=== PATIENT | male | born 1940 | race Caucasian/White ===

== ENCOUNTER 2019-01-19 14:12 | Observation (INO) | payer MEDICARE, SELFPAY ==
[2019-01-19] VITALS (9 sets, daily range): BP systolic 103–168; BP diastolic 74–94; PULSE 81–123; RESP 16–18; TEMP 36.3–36.9; O2SAT 93–98; BMI 25.8; BMI 25.6
--- NOTE | 2019-01-19 14:25 | EKG12_ITS ---
Test Reason : CONFUSION Blood Pressure : / mmHG Vent. Rate : 112 BPM Atrial Rate : 112 BPM P-R Int : 182 ms QRS Dur : 092 ms QT Int : 332 ms P-R-T Axes : 042 -20 034 degrees QTc Int : 453 ms Sinus tachycardia Otherwise normal ECG Confirmed by ELIJAH JAY, BINH ([id number]), science editor SONAL ARRINGTON ([id number]) on 01/20/2019 8:22:32 AM Referred By: DENNY Confirmed By:BINH NAAV MD
--- NOTE | 2019-01-19 14:25 | CT_ITS ---
STUDY: CT BRAIN WITHOUT CONTRAST REASON FOR EXAM: Male, 78 years old. TIA, ALTERED MENTAL STATUS, CONFUSION, HTN, DB RADIATION DOSAGE (If Supplied By Facility): CTDIvol = ( 44.99 ) mGy, DLP = ( 728.62 ) mGycm TECHNIQUE: Transaxial CT imaging of the brain was performed without administration of intravenous contrast material. Individualized dose optimization techniques were used for this CT. COMPARISON: None. FINDINGS: Normal soft tissue structures. Normal calvarium. There is mild cerebral atrophy with widening of the extra-axial spaces and ventricular dilatation. There are areas of decreased attenuation within the white matter tracts of the supratentorial brain, consistent with microvascular disease changes. Normal basal ganglia and thalami. Normal brainstem. Normal cerebellum. There is no intracranial hemorrhage. There are no findings of an acute ischemic infarction. There is mucoperiosteal inflammatory disease of the paranasal sinuses consistent with moderate chronic sinusitis. CT/Brain/Head without Contrast IMPRESSION: Chronic involutional changes of the brain. Electronically Signed: Miguel Childress, at 15:53 EDT Tel , Service support ,
--- NOTE | 2019-01-19 14:29 | ED.DCSUM_ITS ---
History of Present Illness Chief Complaint: Confusion Detail of Chief Complaint: Details unknown since boss left Informant: Patient Limited by: - - Confusion. 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 He called him back 10 minutes later and asked him what he was supposed to do. When he met up with Mr. Vera he states his truck was full of parts. His truck should have been empty. Onset: Today Context: Sudden Onset Timing: Continuous Quality: Patient states he messed up a couple of quarters . Location: Work Current Severity: Mild Maximum Severity: Mild Worsened by: Unknown Relieved by: Apparently nothing Associated Symptoms: Slight headache Narrative: Patient is an elderly man who apparently has history of GERD and asthma. Uncertain whether this is accurate. His boss who brought him here because of his confusion left before the nurse or I could speak to him. Patient acknowledges mild headache, and problems with order. He denies visual, ocular auditory symptoms. He denies cardiac respiratory symptoms. He denies GI or symptoms. He reports no history of trauma. Past Medical History - Allergies and Home Meds Allergies/Adverse Reactions: Allergies Penicillins [PCN] Allergy (Verified 01/19/19 14:33) Unknown Primary Care Physician: [facility] Doctor,Out of [NON-STAFF] - Prior records reviewed: Yes - No prior visits Past Medical History: - - Uncertain Lives: - - Unknown Smoking Status: Former smoker Alcohol: None Review of Systems ROS: Unable to Obtain - Please read HPI. Patient disoriented to time. Is not no age. Is not no birthday. He is an unreliable informant. Neurological: Reports: Headache Physical Exam Vital Signs/Narrative: Vital Signs Temp Pulse Resp BP Pulse Ox 01/19/19 14:13 97.3 F L 122 H 17 136/94 H 97 Inital Vital Signs reviewed: Yes - Patient is tachycardic. He is not tachypneic, hypoxic or febrile. General: Well nourished, Well developed, No Acute Distress Head: Normocephalic, Atraumatic Eyes: Perrl, EOMI. Negative for: Pale conjunctiva, Scleral icterus ENT: Moist mucous membranes, No rhinorrhea, Dry mucous membranes Neck: Supple, Nontender, No lymphadenopathy, No JVD Cardiovascular: Regular rate, Regular rhythm, No murmurs, Tachycardia Respiratory: No distress, CTA bilaterally, Chest nontender Abdomen: Soft, Nontender, Nondistended, Normal bowel sounds, No masses. Negative for: Hepatomegaly, Splenomegaly Back: Nontender, Normal Inspection Extremities: Nontender, No edema Skin: Normal color, No rash, No Trauma. Negative for: Cyanosis, Jaundice, Pallor Neurological: Alert, Cranial nerves II-XII grossly intact, Normal Strength, Normal Sensation, Normal DTR, - - Finger-nose to finger was performed adequately. Negative for: Oriented x3 Psychological: Normal affect Diagnostic/Tx/Re-eval 01/19/19 14:25 Brain/Head without Contrast [CT] Stat Laboratory Results 01/19/19 01/19/19 01/19/19 14:30 14:30 14:36 WBC 10.4 RBC 4.87 Hgb 15.6 Hct 45.8 MCV 94.0 MCH 32.0 MCHC 34.1 RDW 13.2 RDW Differential 45.5 H Plt Count 198 MPV 10.1 Immature Gran % (Auto) 0.200 Neut % (Auto) 83.7 H Lymph % (Auto) 8.8 L [place] % (Auto) 6.1 Eos % (Auto) 0.6 Baso % (Auto) 0.6 Absolute Neuts (auto) 8.7 H Absolute Lymphs (auto) 0.91 Total Counted Not Reportable Sodium 138 Potassium 3.6 Chloride 106 Carbon Dioxide 26.0 Anion Gap 6 BUN 12 Creatinine 0.89 Estim Creat Clear Calc 66.18 Est GFR (MDRD) Af Amer 107 Est GFR (MDRD) Non-Af 88 BUN/Creatinine Ratio 13.5 Glucose 165 H Calcium 8.7 Urine Color Urine Clarity Urine pH Ur Specific [place] Urine Protein Urine Glucose (UA) Urine Ketones Urine Occult Blood Urine Nitrite Urine Bilirubin Urine Urobilinogen Ur Leukocyte Esterase Urine RBC Urine WBC Ur Squamous Epith Cells Urine Bacteria Urine Mucus POC Glucose 163 H 01/19/19 15:00 WBC RBC Hgb Hct MCV MCH MCHC RDW RDW Differential Plt Count MPV Immature Gran % (Auto) Neut % (Auto) Lymph % (Auto) [place] % (Auto) Eos % (Auto) Baso % (Auto) Absolute Neuts (auto) Absolute Lymphs (auto) Total Counted Sodium Potassium Chloride Carbon Dioxide Anion Gap BUN Creatinine Estim Creat Clear Calc Est GFR (MDRD) Af Amer Est GFR (MDRD) Non-Af BUN/Creatinine Ratio Glucose Calcium Urine Color Yellow Urine Clarity Sl Cloudy Urine pH 6.0 Ur Specific [place] 1.015 Urine Protein 15 H Urine Glucose (UA) Normal Urine Ketones 50 H Urine Occult Blood 25 H Urine Nitrite Negative Urine Bilirubin Negative Urine Urobilinogen Normal Ur Leukocyte Esterase 25 H Urine RBC 0-5 SEEN Urine WBC 0-5 SEEN Ur Squamous Epith Cells 0 SEEN Urine Bacteria RARE Urine Mucus [address] has not been read by radiologist. There is no evidence of sinusitis. There is no evidence of intracranial bleed i.e. subdural, subarachnoid hemorrhage, epidural or intraparenchymal blood. There is no obvious stroke per my review. Case was discussed with hospitalist. He requested hepatic panel and ammonia level. - Rhythm Strip Rhythm Strip: Sinus Rhythm Rate: 124 Ectopy: None - EKG Initial EKG Interpretation: Sinus Tachycardia - Ventricular rate is 112. MS interval is 182 ms. QRS duration is 92 ms. QT interval is normal. [place] is normal. Other than tachycardia EKG is normal. - Medical Decision Making Patient with acute onset of confusion. Since he complains of headache will obtain CT to evaluate for intracranial bleed. Since he has a nonfocal exam doubt stroke. Need to rule out infectious/metabolic cause. Patient had a list of medications and based on his list of medications he has a history of hypertension, hypercholesterolemia and type 2 diabetes on metformin. PTT was ordered. Electronic panel, CBC are unremarkable. UA is unremarkable. CT has not formally been read but there is no obvious abnormality per my review. Plan is PCU observation status for further testing. Hospitalist requested hepatic panel and ammonia level. Per patient's employer/boss there is no history of alcohol or drug use. ED Disposition - Plan for ED Patient: Disposition: Acute Care Hospital [facility] Diagnosis: Acute confusion, History of type 2 diabetes mellitus, History of hypertension, History of hypercholesterolemia Referrals: [facility] Doctor,Out of [NON-STAFF] -
[2019-01-19 14:38] LABS: Absolute Lymphocyte Count 0.91 X10^3/ul (0.83-4.51); Absolute Neutrophil Count 8.7 X10^3/uL (2.0-7.7); Basophil# 0.06 X10^3/uL; Basophil% 0.6 % (0-1); Eosinophil# 0.06 X10^3/uL; Eosinophils% 0.6 % (0-5); Hematocrit 45.8 % (40-54); Hemoglobin 15.6 g/dl (13.0-16.5); Lymphocyte # 0.91 X10^3/ul (4.0); Lymphocyte % 8.8 % (19-41); Mean Corp Hgb Conc 34.1 g/gl (32-36); Mean Platelet Vol. 10.1 fl (6.2-12.0); Monocyte# 0.63 X10^3/uL; Monocyte% 6.1 % (0-10); Neutrophil # 8.72 X10^3/uL (2.7-7.7); Neutrophil % 83.7 % (47-70); POSITIVE COUNT NO; POSITIVE DIFFERENTIAL NO; POSITIVE MORPHOLOGY NO; Platelet Count 198 K/mm3 (150-450); RBC Distribution Width CV 13.2 % (11.6-14.6); RBC Distribution Width SD 45.5 fl (35.1-43.9); Red Blood Count 4.87 M/mm3 (4.6-6.2); White Blood Count 10.4 K/mm3 (4.4-11.0)
[2019-01-19 14:41] LABS: Bedside Glucose 163 mg/dL (70-110)
[2019-01-19 14:56] LABS: Anion Gap 6 (5-15); BUN 12 mg/dL (7-18); BUN/Creat Ratio 13.5 RATIO (10-20); Calcium,Total 8.7 mg/dL (8.5-10.1); Chloride 106 mmol/L (98-107); Creatinine, Serum 0.89 mg/dL (0.70-1.30); EST Glomerular Filtration Rate 88 mL/min (>60); Est Glom Filt Rate - Afr Amer 107 mL/min (>60); Estimated Creatinine Clearance 66.18 ml/min; Glucose 165 mg/dL (74-106); Potassium 3.6 mmol/L (3.5-5.1); Sodium Level 138 mmol/L (136-145)
[2019-01-19 15:02] LABS: Mucous, Urine 0 SEEN /hpf (<or=2+); Squamous Epithelial Cells - UA 0 SEEN /hpf (0-5)
[2019-01-19 15:06] LABS: Glucose, Dipstick Normal (Normal); Ketone-Dipstick 50 mg/dl (Negative); Leukocyte Esterase-Dipstick 25 /ul (Negative); Nitrite-Dipstick Negative (Negative); Occult Blood-Urine 25 /ul (Negative); Protein-Dipstick 15 mg/dl (Negative); Specific Gravity, Urine 1.015 (1.002-1.030); Urine Bilirubin Dipstick Negative (Negative); Urine Urobilinogen Normal (Normal)
[2019-01-19 15:07] LABS: Color, Urine Yellow (Yellow); Urine Clarity Sl Cloudy (Clear)
[2019-01-19 15:17] LABS: Bacteria RARE /hpf (None Seen); Red Blood Cells-Urine 0-5 SEEN /hpf (0-5); White Blood Cells 0-5 SEEN /hpf (0-5)
[2019-01-19 15:42] LABS: AST(SGOT) 28 U/L (15-37); Alanine Aminotransfer ALT/SGPT 48 U/L (16-61); Albumin, Serum 4.7 g/dL (3.2-5.0); Alkaline Phosphatase 81 U/L (45-117); Globulin 3.7 g/dL (2.2-4.2); Protein, Total 8.4 g/dL (6.4-8.2)
[2019-01-19] MEDS: 0.9% Normal Saline 1,000 ML 100 ML IV (16:30)
--- NOTE | 2019-01-19 16:36 | HP.PCM_ITS ---
<Mer Orourke - Last Filed: 01/19/19 16:56> Problem List (1) Acute confusion Status: Acute (2) History of type 2 diabetes mellitus Status: Chronic (3) History of hypertension Status: Chronic (4) History of hypercholesterolemia Status: Chronic History of Present Illness Date of Admission: 01/19/19 Chief Complaint: Altered mental status. The patient is a 78 year old M who presents the emergency room due to altered mental status. Patient was reported to be confused at work and coworker brought him to the emergency room for further evaluation. Coworker at bedside states patient was not completing daily tasks as he usually does. Patient was reported to seem disoriented and confused. Coworker denies that patient had speech changes, facial droop. Patient denies knowledge of being confused today. He does not remember his coworker bring him to the hospital. He does note he had a headache earlier today which has since resolved. Coworker reports he has not known patient to be confused in the past. Patient denies current symptoms. Denies recent illness. Neuro assessment grossly intact with the exception of orientation questions. Patient states the year is 2000, month December and that he is at [facility]. He has a past medical history of hypertension, hyperlipidemia, type 2 diabetes mellitus, BPH and GERD. Past Medical History Past Medical History (Chronic Problems): Chronic Problems History of type 2 diabetes mellitus (Chronic) History of hypertension (Chronic) History of hypercholesterolemia (Chronic) Allergies Penicillins [PCN] Allergy (Verified 01/19/19 14:33) Unknown Home Medications: Ambulatory Orders Medication Instructions Recorded Amlodipine [Norvasc] 10 mg PO DAILY 01/19/19 Aspirin E.C. [Ecotrin] 162.5 mg PO DAILY 01/19/19 Finasteride [Proscar] 5 mg PO DAILY 01/19/19 Metformin HCl 500 mg PO DAILY 01/19/19 Multivit-Min/FA/Lycopen/Lutein 1 tab PO DAILY 01/19/19 [Centrum Silver Men Tablet] Omeprazole [Prilosec] 20 mg PO DAILY 01/19/19 Oxybutynin [Ditropan] 5 mg PO DAILY 01/19/19 Pravastatin [Pravachol] 40 mg PO DAILY 01/19/19 Surgical History: appendectomy, cholecystectomy, tonsillectomy Psychiatric History: No pertinent psych hx Lives: Alone Smoking Status: Never smoker Alcohol: None Drugs: None - *Family History Maternal History Items: - - Parkinson's disease Paternal History Items: - - Parkinson's disease Review of Systems Constitutional: Denies: Chills, Fever, Weight Change HEENT: Reports: - - Headache, resolved.. Denies: Head Aches, Sinus Congestion, Sinus Drainage Cardiovascular: Denies: Chest Pain, Palpitations Respiratory: Denies: Cough, Shortness of breath at rest, Sputum production Gastrointestinal: Denies: Abdominal Pain, Nausea, Vomiting Genitourinary: Denies: Dysuria Musculoskeletal: Denies: Joint Pain, Joint Tenderness Skin: Denies: Rash, Wounds Neurological: Denies: Numbness, Tingling, Focal weakness Psychiatric: Denies: Anxiety, Depression, Homicidal Ideations, Suicidal Ideations Hematologic/ Lymphatic: Denies: Easy Bruising, Easy Bleeding VTE Information - Inpt Only VTE Present on Admission: No VTE Mechan Device Prophylaxis: None VTE Pharm Prophylaxis ordered?: Yes Patient Problems: Active and Suspected Problems Acute confusion (Acute) - Physical Exam General: Alert, Cooperative, Confused HEENT: Atraumatic, PERRLA, EOMI, Normocephalic Neck: Supple, No JVD, Negative Carotid Bruits Lungs: Clear to auscultation, Normal air movement Cardiovascular: Regular rate, Regular Rhythm, Normal S1, Normal S2, No murmurs Abdomen: Bowel Sounds Present, Soft, Non Tender, Non-Distended Extremities: No clubbing, No cyanosis, No edema, Capillary Refill Less than 3 Seconds Skin: No rashes, No breakdown Musculoskeletal: No Tenderness to Palpation of Joints or Extremities Neurological: Cranial nerves II-XII grossly intact, Neuro grossly intact Psych/Mental Status: Normal Affect, Appropriate Vital Signs Temp Pulse Resp BP Pulse Ox 98.5 F 107 H 18 147/83 H 97 01/19/19 16:12 01/19/19 16:12 01/19/19 16:12 01/19/19 16:12 01/19/19 16:12 Oxygen Delivery Method Room Air Weight: 168 lb 6.931 oz Body Mass Index (BMI) 25.6 Finger Stick Blood Glucose 163 Laboratory Tests Past 24 Hrs 01/19/19 01/19/19 01/19/19 14:30 14:30 14:30 WBC 10.4 RBC 4.87 Hgb 15.6 Hct 45.8 MCV 94.0 MCH 32.0 MCHC 34.1 RDW 13.2 RDW Differential 45.5 H Plt Count 198 MPV 10.1 Immature Gran % (Auto) 0.200 Neut % (Auto) 83.7 H Lymph % (Auto) 8.8 L [place] % (Auto) 6.1 Eos % (Auto) 0.6 Baso % (Auto) 0.6 Absolute Neuts (auto) 8.7 H Absolute Lymphs (auto) 0.91 Total Counted Not Reportable Sodium 138 Potassium 3.6 Chloride 106 Carbon Dioxide 26.0 Anion Gap 6 BUN 12 Creatinine 0.89 Estim Creat Clear Calc 66.18 Est GFR (MDRD) Af Amer 107 Est GFR (MDRD) Non-Af 88 BUN/Creatinine Ratio 13.5 Glucose 165 H Calcium 8.7 Total Bilirubin 0.60 Direct Bilirubin 0.20 AST 28 ALT 48 Alkaline Phosphatase 81 Ammonia Total Protein 8.4 H Albumin 4.7 Globulin 3.7 Urine Color Urine Clarity Urine pH Ur Specific [place] Urine Protein Urine Glucose (UA) Urine Ketones Urine Occult Blood Urine Nitrite Urine Bilirubin Urine Urobilinogen Ur Leukocyte Esterase Urine RBC Urine WBC Ur Squamous Epith Cells Urine Bacteria Urine Mucus 01/19/19 01/19/19 15:00 15:23 WBC RBC Hgb Hct MCV MCH MCHC RDW RDW Differential Plt Count MPV Immature Gran % (Auto) Neut % (Auto) Lymph % (Auto) [place] % (Auto) Eos % (Auto) Baso % (Auto) Absolute Neuts (auto) Absolute Lymphs (auto) Total Counted Sodium Potassium Chloride Carbon Dioxide Anion Gap BUN Creatinine Estim Creat Clear Calc Est GFR (MDRD) Af Amer Est GFR (MDRD) Non-Af BUN/Creatinine Ratio Glucose Calcium Total Bilirubin Direct Bilirubin AST ALT Alkaline Phosphatase Ammonia 11.0 Total Protein Albumin Globulin Urine Color Yellow Urine Clarity Sl Cloudy Urine pH 6.0 Ur Specific [place] 1.015 Urine Protein 15 H Urine Glucose (UA) Normal Urine Ketones 50 H Urine Occult Blood 25 H Urine Nitrite Negative Urine Bilirubin Negative Urine Urobilinogen Normal Ur Leukocyte Esterase 25 H Urine RBC 0-5 SEEN Urine WBC 0-5 SEEN Ur Squamous Epith Cells 0 SEEN Urine Bacteria RARE Urine Mucus 0 SEEN POC Glucose 01/19/19 14:36 POC Glucose 163 H Assessment/Plan All Active Problems Acute confusion (Acute) 1. Altered mental status-unclear etiology. Brain CT shows chronic changes. No acute findings. Urinalysis unremarkable. Obtain chest x-ray. Obtain MRI of brain. [facility]. Fall precautions. PT/OT. 2. Hypertension-stable, continue home amlodipine regimen. 3. Hyperlipidemia-continue statin. 4. Type 2 diabetes mellitus-hold metformin regimen. Accu-Cheks AC at bedtime with sliding scale insulin. 5. GERD-continue PPI. 6. BPH-continue home Proscar regimen. DVT prophylaxis-Lovenox subcu This patient was seen by SAMIR Baez under the supervision of Dr. Payne. <Kevin Payne F - Last Filed: 01/19/19 18:39> History of Present Illness The patient is a 78 year old M [] Past Medical History Allergies Penicillins [PCN] Allergy (Verified 01/19/19 14:33) Unknown - Physical Exam Vital Signs Temp Pulse Resp BP Pulse Ox 98.5 F 106 H 18 147/83 H 97 01/19/19 16:12 01/19/19 16:58 01/19/19 16:12 01/19/19 16:12 01/19/19 16:12 Oxygen Delivery Method Room Air Weight: 168 lb 6.931 oz Body Mass Index (BMI) 25.6 Finger Stick Blood Glucose 163 Intake and Output for Last 24 Hours 01/17/19 01/18/19 01/19/19 23:59 23:59 23:59 Intake Total 438 / 438 Balance 438 / 438 Laboratory Tests Past 24 Hrs 01/19/19 01/19/19 01/19/19 14:30 14:30 14:30 WBC 10.4 RBC 4.87 Hgb 15.6 Hct 45.8 MCV 94.0 MCH 32.0 MCHC 34.1 RDW 13.2 RDW Differential 45.5 H Plt Count 198 MPV 10.1 Immature Gran % (Auto) 0.200 Neut % (Auto) 83.7 H Lymph % (Auto) 8.8 L [place] % (Auto) 6.1 Eos % (Auto) 0.6 Baso % (Auto) 0.6 Absolute Neuts (auto) 8.7 H Absolute Lymphs (auto) 0.91 Total Counted Not Reportable Sodium 138 Potassium 3.6 Chloride 106 Carbon Dioxide 26.0 Anion Gap 6 BUN 12 Creatinine 0.89 Estim Creat Clear Calc 66.18 Est GFR (MDRD) Af Amer 107 Est GFR (MDRD) Non-Af 88 BUN/Creatinine Ratio 13.5 Glucose 165 H Hemoglobin A1c Calcium 8.7 Total Bilirubin 0.60 Direct Bilirubin 0.20 AST 28 ALT 48 Alkaline Phosphatase 81 Ammonia Total Protein 8.4 H Albumin 4.7 Globulin 3.7 Urine Color Urine Clarity Urine pH Ur Specific [place] Urine Protein Urine Glucose (UA) Urine Ketones Urine Occult Blood Urine Nitrite Urine Bilirubin Urine Urobilinogen Ur Leukocyte Esterase Urine RBC Urine WBC Ur Squamous Epith Cells Urine Bacteria Urine Mucus 01/19/19 01/19/19 01/19/19 14:30 15:00 15:23 WBC RBC Hgb Hct MCV MCH MCHC RDW RDW Differential Plt Count MPV Immature Gran % (Auto) Neut % (Auto) Lymph % (Auto) [place] % (Auto) Eos % (Auto) Baso % (Auto) Absolute Neuts (auto) Absolute Lymphs (auto) Total Counted Sodium Potassium Chloride Carbon Dioxide Anion Gap BUN Creatinine Estim Creat Clear Calc Est GFR (MDRD) Af Amer Est GFR (MDRD) Non-Af BUN/Creatinine Ratio Glucose Hemoglobin A1c 6.7 H Calcium Total Bilirubin Direct Bilirubin AST ALT Alkaline Phosphatase Ammonia 11.0 Total Protein Albumin Globulin Urine Color Yellow Urine Clarity Sl Cloudy Urine pH 6.0 Ur Specific [place] 1.015 Urine Protein 15 H Urine Glucose (UA) Normal Urine Ketones 50 H Urine Occult Blood 25 H Urine Nitrite Negative Urine Bilirubin Negative Urine Urobilinogen Normal Ur Leukocyte Esterase 25 H Urine RBC 0-5 SEEN Urine WBC 0-5 SEEN Ur Squamous Epith Cells 0 SEEN Urine Bacteria RARE Urine Mucus 0 SEEN POC Glucose 01/19/19 01/19/19 16:30 14:36 POC Glucose 150 H 163 H Code Visit Addendum: Dr. Payne I personally examined the patient and reviewed the chart. I agree with the above. 78-year-old male who is found to be confused this morning. 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 So his boss went down to the truck and noticed that he had not made any of his deliveries today which was highly abnormal for him. In the ER he did not know his age and the month however the rest of his NIH was normal and he had no focal deficits. Because there is no timing of when this occurred TPA was not a consideration and it is felt that he is having a stroke. On my evaluation he was able to get the month but did not know the year or his age. He had normal strength and sensation in all 4 extremities cranial nerves were intact and he had no lateralizing or focal findings. LFTs were added on to his ER labs as well as an ammonia which were both normal. Will obtain a TSH and a B12 in the morning and continue with neuro checks overnight. MRI in the morning as well. OBSV E&M: [id number] Initial observation care L3
[2019-01-19 16:51] LABS: Bedside Glucose 150 mg/dL (70-110)
--- NOTE | 2019-01-19 17:15 | RAD_ITS ---
STUDY: X-RAY CHEST REASON FOR EXAM: Male, 78 years old. Altered mental status TECHNIQUE: Single AP portable view of the chest. COMPARISON: None. FINDINGS: EKG leads overlie the chest There are interstitial fibrotic changes of the lungs. There is no demonstrated pleural abnormality. Normal size heart. Normal mediastinum and tavares. Normal visualized pulmonary arteries. There is atherosclerotic calcification of the aortic arch with tortuosity. Normal visualized thoracic spine. Normal visualized ribs, clavicles, and shoulders. There is no demonstrated abnormality of the visualized soft tissue structures of the upper abdomen. RAD/Chest 1 View (Portable) IMPRESSION: No acute pulmonary process Electronically Signed: Milan Cannon MD at 17:28 EDT , Service support ,
[2019-01-19 17:36] LABS: Hemoglobin A1c 6.7 % (4.2-6.3)
[2019-01-19] MEDS: Insulin Lispro 100 UNIT/ML INSULN.PEN SQ (17:50)
[2019-01-19] MEDS: 0.9% NaCl Peripheral Flush Adult/Peds IV (17:50)
[2019-01-19] MEDS: Pravastatin 40 MG Tablet PO (22:20)
[2019-01-19 22:30] LABS: Bedside Glucose 104 mg/dL (70-110)
[2019-01-20] VITALS (8 sets, daily range): BP systolic 121–141; BP diastolic 68–85; PULSE 72–92; RESP 16–18; TEMP 36.5–36.6; O2SAT 96–97
[2019-01-20] MEDS: 0.9% Normal Saline 1,000 ML 100 ML IV (02:30)
--- NOTE | 2019-01-20 05:55 | MRI_ITS ---
STUDY: MRI BRAIN WITHOUT CONTRAST REASON FOR EXAM: Male, 78 years old. Confusion and left facial numbness TECHNIQUE: Standardized multiplanar fat and water weighted pulse sequences were obtained. COMPARISON: CT head 01/19/2019 FINDINGS: There is mild cerebral atrophy with widening of the extra-axial spaces and ventricular dilatation. There are multiple white matter hyperintensities, distributed throughout the deep white matter tracts of the cerebral hemispheres, consistent with moderate chronic white matter ischemic changes. Normal bilateral basal ganglia. Normal thalami. There is no extra-axial fluid accumulation. Normal flow voids within the major intracranial circulation suggesting patency by spin echo criteria. Normal sella turcica, pituitary gland, infundibular stalk, optic chiasm and hypothalamus. Normal tectal plate and pineal gland. Normal midbrain, afshin and medulla. Normal cerebellum. Normal basal cisterns. Normal bilateral temporal bones. Normal bilateral internal auditory canals. No demonstrated orbital abnormality, within the constraints of a routine brain study. Normal visualized paranasal sinuses. Normal calvarium and skull base. Normal visualized soft tissue structures. Normal visualized upper cervical spine. MRI/Brain without Contrast IMPRESSION: No acute intracranial abnormality. Involutional changes of the brain, as described above. Electronically Signed: Avelina Doyle, at 9:19 EDT Tel , Service support ,
[2019-01-20 05:59] LABS: Absolute Lymphocyte Count 1.68 X10^3/ul (0.83-4.51); Basophil# 0.04 X10^3/uL; Basophil% 0.6 % (0-1); Eosinophil# 0.45 X10^3/uL; Eosinophils% 6.3 % (0-5); Hematocrit 42.4 % (40-54); Hemoglobin 14.3 g/dl (13.0-16.5); Lymphocyte # 1.68 X10^3/ul (4.0); Lymphocyte % 23.4 % (19-41); Mean Corp Hgb Conc 33.7 g/gl (32-36); Mean Corpuscular Hgb 32.3 pg (27.0-32.0); Mean Corpuscular Volume 95.7 fL (80-94); Mean Platelet Vol. 10.5 fl (6.2-12.0); Monocyte# 0.98 X10^3/uL; Monocyte% 13.6 % (0-10); Neutrophil # 4.03 X10^3/uL (2.7-7.7); Neutrophil % 56.1 % (47-70); Platelet Count 199 K/mm3 (150-450); RBC Distribution Width CV 13.4 % (11.6-14.6); Red Blood Count 4.43 M/mm3 (4.6-6.2); White Blood Count 7.2 K/mm3 (4.4-11.0)
[2019-01-20 06:19] LABS: POSITIVE COUNT NO; POSITIVE DIFFERENTIAL NO; POSITIVE MORPHOLOGY NO
[2019-01-20 06:45] LABS: Anion Gap 7 (5-15); BUN 8 mg/dL (7-18); BUN/Creat Ratio 10.8 RATIO (10-20); Calcium,Total 8.2 mg/dL (8.5-10.1); Chloride 110 mmol/L (98-107); Creatinine, Serum 0.74 mg/dL (0.70-1.30); EST Glomerular Filtration Rate 108 mL/min (>60); Est Glom Filt Rate - Afr Amer 131 mL/min (>60); Glucose 122 mg/dL (74-106); Potassium 3.7 mmol/L (3.5-5.1); Sodium Level 144 mmol/L (136-145); Thyroid Stim Hormone (TSH) 3.16 uIU/mL (0.358-3.74)
[2019-01-20 06:50] LABS: Bedside Glucose 126 mg/dL (70-110)
[2019-01-20] MEDS: Enoxaparin 40 MG/0.4 ML Syringe SC (09:43)
[2019-01-20] MEDS: Oxybutynin 5 MG Tablet PO (09:43)
[2019-01-20] MEDS: amLODIPine 10 MG Tablet PO (09:43)
[2019-01-20] MEDS: Aspirin 325 MG Tablet 162.5 MG PO (09:43)
[2019-01-20] MEDS: Finasteride 5 MG Tablet PO (09:44)
[2019-01-20] MEDS: Pantoprazole Sodium 20 MG Tablet PO (09:44)
--- NOTE | 2019-01-20 10:46 | CON.PCM_ITS ---
Reason for Consult Date of Consultation: 01/20/19 Reason for Consultation: confusion History of Present Illness: The patient is a 78 year old M right handed presented with confusion as described below, now feels normal. doesnt know of a trigger. 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 he reports he drove the van to work, apparently drove ok but was noted abnormal by suprevisor. no med changes or recent illness. reports recent sinus infection but only used humidifier. no gi or gu complaints. no insomnia. per admit note:The patient is a 78 year old M who presents the emergency room due to altered mental status. Patient was reported to be confused at work and coworker brought him to the emergency room for further evaluation. Coworker at bedside states patient was not completing daily tasks as he usually does. Patient was reported to seem disoriented and confused. Coworker denies that patient had speech changes, facial droop. Patient denies knowledge of being confused today. He does not remember his coworker bring him to the hospital. He does note he had a headache earlier today which has since resolved. Coworker reports he has not known patient to be confused in the past. Patient denies current symptoms. Denies recent illness. Neuro assessment grossly intact with the exception of orientation questions. Patient states the year is 2000, month December and that he is at [facility]. He has a past medical history of hypertension, hyperlipidemia, type 2 diabetes mellitus, BPH and GERD. Past Medical History Past Medical History (Chronic Problems): Chronic Problems History of type 2 diabetes mellitus (Chronic) History of hypertension (Chronic) History of hypercholesterolemia (Chronic) Allergies Penicillins [PCN] Allergy (Verified 01/19/19 14:33) Unknown Home Medications: Ambulatory Orders Medication Instructions Recorded Amlodipine [Norvasc] 10 mg PO DAILY 01/19/19 Aspirin E.C. [Ecotrin] 162.5 mg PO DAILY 01/19/19 Finasteride [Proscar] 5 mg PO DAILY 01/19/19 Metformin HCl 500 mg PO DAILY 01/19/19 Multivit-Min/FA/Lycopen/Lutein 1 tab PO DAILY 01/19/19 [Centrum Silver Men Tablet] Omeprazole [Prilosec] 20 mg PO DAILY 01/19/19 Oxybutynin [Ditropan] 5 mg PO DAILY 01/19/19 Pravastatin [Pravachol] 40 mg PO DAILY 01/19/19 Surgical History: appendectomy, cholecystectomy, tonsillectomy Psychiatric History: No pertinent psych hx Lives: Alone Smoking Status: Never smoker Tobacco Use: Non-smoker Alcohol: None Drugs: None - *Family History Maternal History Items: - - Parkinson's disease Paternal History Items: - - Parkinson's disease Review of Systems Constitutional: Denies: Chills, Fever, Weight Change HEENT: Denies: Head Aches, Sinus Congestion, Sinus Drainage Cardiovascular: Denies: Chest Pain, Palpitations Respiratory: Denies: Cough, Shortness of breath at rest, Sputum production Gastrointestinal: Denies: Abdominal Pain, Nausea, Vomiting Genitourinary: Denies: Dysuria Musculoskeletal: Denies: Joint Pain, Joint Tenderness Skin: Denies: Rash, Wounds Neurological: Reports: Confusion. Denies: Focal weakness, Numbness, Tingling Psychiatric: Denies: Anxiety, Depression, Homicidal Ideations, Suicidal Ideations Hematologic/ Lymphatic: Denies: Easy Bruising, Easy Bleeding Patient Problems: Active and Suspected Problems Acute confusion (Acute) - Physical Exam General: Alert, Oriented x3, Cooperative, No apparent distress HEENT: PERRLA, EOMI Neurological: Cranial nerves II-XII grossly intact, Deep Tendon Reflexes 2+/4 and Symmetrical, Neuro grossly intact, Motor Exam 5/5 strength throughout, Se nsory exam intact to light touch and pain, Coordination normal Psych/Mental Status: Normal Affect, Alert and oriented to time, place, person, mood and affect Vital Signs Temp Pulse Resp BP Pulse Ox 36.6 C 92 16 130/85 H 97 01/20/19 08:10 01/20/19 08:10 01/20/19 08:10 01/20/19 08:10 01/20/19 08:10 Oxygen Delivery Method Room Air Weight: 76.4 kg Body Mass Index (BMI) 25.6 Finger Stick Blood Glucose 163 Intake and Output for Last 24 Hours 01/18/19 01/19/19 01/20/19 23:59 23:59 23:59 Intake Total 1008 / 1008 939 / 939 Output Total 450 / 450 625 / 625 Balance 558 / 558 314 / 314 Laboratory Tests Past 24 Hrs 01/19/19 01/19/19 01/19/19 14:30 14:30 14:30 WBC 10.4 RBC 4.87 Hgb 15.6 Hct 45.8 MCV 94.0 MCH 32.0 MCHC 34.1 RDW 13.2 RDW Differential 45.5 H Plt Count 198 MPV 10.1 Immature Gran % (Auto) 0.200 Neut % (Auto) 83.7 H Lymph % (Auto) 8.8 L [place] % (Auto) 6.1 Eos % (Auto) 0.6 Baso % (Auto) 0.6 Absolute Neuts (auto) 8.7 H Absolute Lymphs (auto) 0.91 Total Counted Not Reportable Sodium 138 Potassium 3.6 Chloride 106 Carbon Dioxide 26.0 Anion Gap 6 BUN 12 Creatinine 0.89 Estim Creat Clear Calc 66.18 Est GFR (MDRD) Af Amer 107 Est GFR (MDRD) Non-Af 88 BUN/Creatinine Ratio 13.5 Glucose 165 H Hemoglobin A1c Calcium 8.7 Total Bilirubin 0.60 Direct Bilirubin 0.20 AST 28 ALT 48 Alkaline Phosphatase 81 Ammonia Total Protein 8.4 H Albumin 4.7 Globulin 3.7 Vitamin B12 TSH Urine Color Urine Clarity Urine pH Ur Specific [place] Urine Protein Urine Glucose (UA) Urine Ketones Urine Occult Blood Urine Nitrite Urine Bilirubin Urine Urobilinogen Ur Leukocyte Esterase Urine RBC Urine WBC Ur Squamous Epith Cells Urine Bacteria Urine Mucus 01/19/19 01/19/19 01/19/19 14:30 15:00 15:23 WBC RBC Hgb Hct MCV MCH MCHC RDW RDW Differential Plt Count MPV Immature Gran % (Auto) Neut % (Auto) Lymph % (Auto) [place] % (Auto) Eos % (Auto) Baso % (Auto) Absolute Neuts (auto) Absolute Lymphs (auto) Total Counted Sodium Potassium Chloride Carbon Dioxide Anion Gap BUN Creatinine Estim Creat Clear Calc Est GFR (MDRD) Af Amer Est GFR (MDRD) Non-Af BUN/Creatinine Ratio Glucose Hemoglobin A1c 6.7 H Calcium Total Bilirubin Direct Bilirubin AST ALT Alkaline Phosphatase Ammonia 11.0 Total Protein Albumin Globulin Vitamin B12 TSH Urine Color Yellow Urine Clarity Sl Cloudy Urine pH 6.0 Ur Specific [place] 1.015 Urine Protein 15 H Urine Glucose (UA) Normal Urine Ketones 50 H Urine Occult Blood 25 H Urine Nitrite Negative Urine Bilirubin Negative Urine Urobilinogen Normal Ur Leukocyte Esterase 25 H Urine RBC 0-5 SEEN Urine WBC 0-5 SEEN Ur Squamous Epith Cells 0 SEEN Urine Bacteria RARE Urine Mucus 0 SEEN 01/20/19 01/20/19 01/20/19 05:15 05:15 05:15 WBC 7.2 RBC 4.43 L Hgb 14.3 Hct 42.4 MCV 95.7 H MCH 32.3 H MCHC 33.7 RDW 13.4 RDW Differential 45.0 H Plt Count 199 MPV 10.5 Immature Gran % (Auto) 0.000 Neut % (Auto) 56.1 Lymph % (Auto) 23.4 [place] % (Auto) 13.6 H Eos % (Auto) 6.3 H Baso % (Auto) 0.6 Absolute Neuts (auto) 4.0 Absolute Lymphs (auto) 1.68 Total Counted Not Reportable Sodium 144 Potassium 3.7 Chloride 110 H Carbon Dioxide 27.0 Anion Gap 7 BUN 8 Creatinine 0.74 Estim Creat Clear Calc 58.90 Est GFR (MDRD) Af Amer 131 Est GFR (MDRD) Non-Af 108 BUN/Creatinine Ratio 10.8 Glucose 122 H Hemoglobin A1c Calcium 8.2 L Total Bilirubin Direct Bilirubin AST ALT Alkaline Phosphatase Ammonia Total Protein Albumin Globulin Vitamin B12 Pending TSH 3.16 Urine Color Urine Clarity Urine pH Ur Specific [place] Urine Protein Urine Glucose (UA) Urine Ketones Urine Occult Blood Urine Nitrite Urine Bilirubin Urine Urobilinogen Ur Leukocyte Esterase Urine RBC Urine WBC Ur Squamous Epith Cells Urine Bacteria Urine Mucus POC Glucose 01/20/19 01/19/19 01/19/19 06:42 22:18 16:30 POC Glucose 126 H 104 150 H 01/19/19 14:36 POC Glucose 163 H MRI reviewed, no acute. Atrophy. Assessment/Plan All Active Problems Acute confusion (Acute) encephalopathy, resolved TGA (atypical) vs uti (resolved). now normal, tests negative. check C.O. ok to dc
[2019-01-20 10:54] LABS: Vitamin B12 658 pg/mL (211-911)
[2019-01-20] MEDS: Insulin Lispro 100 UNIT/ML INSULN.PEN SQ (11:20)
[2019-01-20 11:25] LABS: Bedside Glucose 161 mg/dL (70-110)
--- NOTE | 2019-01-20 11:47 | PCM.DC ---
- Discharge Diagnoses Current Active Problems: Current Active and Chronic Problems Acute confusion (Acute) History of type 2 diabetes mellitus (Chronic) History of hypertension (Chronic) History of hypercholesterolemia (Chronic) You will use the following diet at home:: No restrictions Discharge Activity: Return to Normal Activity Call your doctor if you observe: Numbness or Tingling, - - Recurrent confusion Allergies/Adverse Reactions: Allergies Penicillins [PCN] Allergy (Verified 01/19/19 14:33) Unknown Medications to take at Discharge Amlodipine [Norvasc] 10 mg PO DAILY 01/19/19 Aspirin E.C. [Ecotrin] 162.5 mg PO DAILY 01/19/19 Finasteride [Proscar] 5 mg PO DAILY 01/19/19 Metformin HCl 500 mg PO DAILY 01/19/19 Multivit-Min/FA/Lycopen/Lutein [Centrum Silver Men Tablet] 1 tab PO DAILY 01/19/19 Omeprazole [Prilosec] 20 mg PO DAILY 01/19/19 Oxybutynin [Ditropan] 5 mg PO DAILY 01/19/19 Pravastatin [Pravachol] 40 mg PO DAILY 01/19/19 Primary Care Physician: [facility] Doctor,Out of [NON-STAFF] - Please follow up with your Primary Care Physician in: 1 Week Test Results: Test results from this visit will be discussed in further detail at your follow-up appointment, if applicable. Proposed Discharge Date: 01/20/19
[2019-01-20 13:23] LABS: Carboxyhemoglobin Frac (CO) 2.5 % (0.0-1.5)
--- NOTE | 2019-01-20 14:22 | DS.PCM_ITS ---
<Mer Orourke - Last Filed: 01/20/19 14:36> Discharge Date and Diagnosis Date of Admission: 01/19/19 Date of Discharge: 01/20/19 - Primary Discharge Diagnosis Active and Suspected Problems 1. Altered mental status, unclear etiology. Possible transient global amnesia vs prior resolved metabolic process. 2. Hypertension 3. Hyperlipidemia 4. Type 2 diabetes mellitus 5. GERD 6. BPH - Secondary Discharge Diagnosis Chronic Problems History of type 2 diabetes mellitus (Chronic) History of hypertension (Chronic) History of hypercholesterolemia (Chronic) Hospital Course and Treatment Imaging Results: Diagnostic Data Brain CT 01/19/19 14:25 IMPRESSION: Chronic involutional changes of the brain. Electronically Signed: Miguel Childress, at 15:53 EDT Tel , Service support , Chest X-Ray 01/19/19 17:15 IMPRESSION: No acute pulmonary process Electronically Signed: Milan Cannon MD at 17:28 EDT , Service support , Brain MRI 01/20/19 05:55 IMPRESSION: No acute intracranial abnormality. Involutional changes of the brain, as described above. Electronically Signed: Avelina Kwon, at 9:19 EDT Tel , Service support , Dr. Ware- Neurology Operations: None Procedures: None Summary of Care Provided: The patient is a 78 year old M admitted 01/19/2019 due to altered mental status. 1. Altered mental status-unclear etiology. Brain CT shows chronic changes. No acute findings. Urinalysis unremarkable. Chest x-ray negative. MRI of brain shows no acute intracranial abnormality. Neurology consulted. Possible transient global amnesia versus metabolic process. Carboxyhemoglobin 2.5%. No evidence of other underlying processes. Alert and oriented at discharge with no further symptoms. Follow-up with primary care physician in 1 week. 2. Hypertension-stable, continue home amlodipine regimen. 3. Hyperlipidemia-continue statin. 4. Type 2 diabetes mellitus-continue home metformin regimen. 5. GERD-continue PPI. 6. BPH-continue home Proscar regimen. General: Alert, Cooperative, oriented HEENT: Atraumatic, PERRLA, EOMI, Normocephalic Neck: Supple, No JVD, Negative Carotid Bruits Lungs: Clear to auscultation, Normal air movement Cardiovascular: Regular rate, Regular Rhythm, Normal S1, Normal S2, No murmurs Abdomen: Bowel Sounds Present, Soft, Non Tender, Non-Distended Extremities: No clubbing, No cyanosis, No edema, Capillary Refill Less than 3 Seconds Skin: No rashes, No breakdown Musculoskeletal: No Tenderness to Palpation of Joints or Extremities Neurological: Cranial nerves II-XII grossly intact, Neuro grossly intact Psych/Mental Status: Normal Affect, Appropriate Patient seen and examined prior to discharge. Physical assessment as noted above. Patient is stable for discharge with follow up recommendations as noted above. This patient was seen by SAMIR Baez under the supervision of Dr. Cr. - Physical Exam Vital Signs Temp Pulse Resp BP Pulse Ox 97.9 F 81 16 121/69 H 96 01/20/19 12:00 01/20/19 12:00 01/20/19 12:00 01/20/19 12:00 01/20/19 12:00 Oxygen Delivery Method Room Air Weight: 168 lb 6.931 oz Body Mass Index (BMI) 25.6 Finger Stick Blood Glucose 163 Intake and Output for Last 24 Hours 01/18/19 01/19/19 01/20/19 23:59 23:59 23:59 Intake Total 1008 / 1008 1660 / 1660 Output Total 450 / 450 1425 / 1425 Balance 558 / 558 235 / 235 Laboratory Tests Past 24 Hrs 01/19/19 01/19/19 01/19/19 14:30 14:30 14:30 WBC 10.4 RBC 4.87 Hgb 15.6 Hct 45.8 MCV 94.0 MCH 32.0 MCHC 34.1 RDW 13.2 RDW Differential 45.5 H Plt Count 198 MPV 10.1 Immature Gran % (Auto) 0.200 Neut % (Auto) 83.7 H Lymph % (Auto) 8.8 L [place] % (Auto) 6.1 Eos % (Auto) 0.6 Baso % (Auto) 0.6 Absolute Neuts (auto) 8.7 H Absolute Lymphs (auto) 0.91 Total Counted Not Reportable VBG Carboxyhemoglobin Sodium 138 Potassium 3.6 Chloride 106 Carbon Dioxide 26.0 Anion Gap 6 BUN 12 Creatinine 0.89 Estim Creat Clear Calc 66.18 Est GFR (MDRD) Af Amer 107 Est GFR (MDRD) Non-Af 88 BUN/Creatinine Ratio 13.5 Glucose 165 H Hemoglobin A1c Calcium 8.7 Total Bilirubin 0.60 Direct Bilirubin 0.20 AST 28 ALT 48 Alkaline Phosphatase 81 Ammonia Total Protein 8.4 H Albumin 4.7 Globulin 3.7 Vitamin B12 TSH Urine Color Urine Clarity Urine pH Ur Specific [place] Urine Protein Urine Glucose (UA) Urine Ketones Urine Occult Blood Urine Nitrite Urine Bilirubin Urine Urobilinogen Ur Leukocyte Esterase Urine RBC Urine WBC Ur Squamous Epith Cells Urine Bacteria Urine Mucus 01/19/19 01/19/19 01/19/19 14:30 15:00 15:23 WBC RBC Hgb Hct MCV MCH MCHC RDW RDW Differential Plt Count MPV Immature Gran % (Auto) Neut % (Auto) Lymph % (Auto) [place] % (Auto) Eos % (Auto) Baso % (Auto) Absolute Neuts (auto) Absolute Lymphs (auto) Total Counted VBG Carboxyhemoglobin Sodium Potassium Chloride Carbon Dioxide Anion Gap BUN Creatinine Estim Creat Clear Calc Est GFR (MDRD) Af Amer Est GFR (MDRD) Non-Af BUN/Creatinine Ratio Glucose Hemoglobin A1c 6.7 H Calcium Total Bilirubin Direct Bilirubin AST ALT Alkaline Phosphatase Ammonia 11.0 Total Protein Albumin Globulin Vitamin B12 TSH Urine Color Yellow Urine Clarity Sl Cloudy Urine pH 6.0 Ur Specific [place] 1.015 Urine Protein 15 H Urine Glucose (UA) Normal Urine Ketones 50 H Urine Occult Blood 25 H Urine Nitrite Negative Urine Bilirubin Negative Urine Urobilinogen Normal Ur Leukocyte Esterase 25 H Urine RBC 0-5 SEEN Urine WBC 0-5 SEEN Ur Squamous Epith Cells 0 SEEN Urine Bacteria RARE Urine Mucus 0 SEEN 01/20/19 01/20/19 01/20/19 05:15 05:15 05:15 WBC 7.2 RBC 4.43 L Hgb 14.3 Hct 42.4 MCV 95.7 H MCH 32.3 H MCHC 33.7 RDW 13.4 RDW Differential 45.0 H Plt Count 199 MPV 10.5 Immature Gran % (Auto) 0.000 Neut % (Auto) 56.1 Lymph % (Auto) 23.4 [place] % (Auto) 13.6 H Eos % (Auto) 6.3 H Baso % (Auto) 0.6 Absolute Neuts (auto) 4.0 Absolute Lymphs (auto) 1.68 Total Counted Not Reportable VBG Carboxyhemoglobin Sodium 144 Potassium 3.7 Chloride 110 H Carbon Dioxide 27.0 Anion Gap 7 BUN 8 Creatinine 0.74 Estim Creat Clear Calc 58.90 Est GFR (MDRD) Af Amer 131 Est GFR (MDRD) Non-Af 108 BUN/Creatinine Ratio 10.8 Glucose 122 H Hemoglobin A1c Calcium 8.2 L Total Bilirubin Direct Bilirubin AST ALT Alkaline Phosphatase Ammonia Total Protein Albumin Globulin Vitamin B12 658 TSH 3.16 Urine Color Urine Clarity Urine pH Ur Specific [place] Urine Protein Urine Glucose (UA) Urine Ketones Urine Occult Blood Urine Nitrite Urine Bilirubin Urine Urobilinogen Ur Leukocyte Esterase Urine RBC Urine WBC Ur Squamous Epith Cells Urine Bacteria Urine Mucus 01/20/19 12:55 WBC RBC Hgb Hct MCV MCH MCHC RDW RDW Differential Plt Count MPV Immature Gran % (Auto) Neut % (Auto) Lymph % (Auto) [place] % (Auto) Eos % (Auto) Baso % (Auto) Absolute Neuts (auto) Absolute Lymphs (auto) Total Counted VBG Carboxyhemoglobin 2.5 H Sodium Potassium Chloride Carbon Dioxide Anion Gap BUN Creatinine Estim Creat Clear Calc Est GFR (MDRD) Af Amer Est GFR (MDRD) Non-Af BUN/Creatinine Ratio Glucose Hemoglobin A1c Calcium Total Bilirubin Direct Bilirubin AST ALT Alkaline Phosphatase Ammonia Total Protein Albumin Globulin Vitamin B12 TSH Urine Color Urine Clarity Urine pH Ur Specific [place] Urine Protein Urine Glucose (UA) Urine Ketones Urine Occult Blood Urine Nitrite Urine Bilirubin Urine Urobilinogen Ur Leukocyte Esterase Urine RBC Urine WBC Ur Squamous Epith Cells Urine Bacteria Urine Mucus POC Glucose 01/20/19 01/20/19 01/19/19 11:18 06:42 22:18 POC Glucose 161 H 126 H 104 01/19/19 01/19/19 16:30 14:36 POC Glucose 150 H 163 H Discharge Diet: No Restrictions Discharge Activity: Return to Normal Activity Call your doctor if you observe: Numbness or Tingling, - - Recurrent confusion Home Medications: Medications to take at Discharge Amlodipine [Norvasc] 10 mg PO DAILY 01/19/19 Aspirin E.C. [Ecotrin] 162.5 mg PO DAILY 01/19/19 Finasteride [Proscar] 5 mg PO DAILY 01/19/19 Metformin HCl 500 mg PO DAILY 01/19/19 Multivit-Min/FA/Lycopen/Lutein [Centrum Silver Men Tablet] 1 tab PO DAILY 01/19/19 Omeprazole [Prilosec] 20 mg PO DAILY 01/19/19 Oxybutynin [Ditropan] 5 mg PO DAILY 01/19/19 Pravastatin [Pravachol] 40 mg PO DAILY 01/19/19 Primary Care Physician: [facility] Doctor,Out of [NON-STAFF] - Please follow up with your Primary Care Physician in: 1 Week Disposition: Home Minutes spent on discharge:: 35 Patient Condition:: Stable Medical Necessity - Tobacco Use Smoking Status: Never smoker Tobacco Use: Non-smoker Meaningful Use Info Meaningful Use Diagnoses (Choose all that apply): None applicable <Jeffrey Cr - Last Filed: 01/20/19 15:02> Discharge Date and Diagnosis - Secondary Discharge Diagnosis Chronic Problems History of type 2 diabetes mellitus (Chronic) History of hypertension (Chronic) History of hypercholesterolemia (Chronic) Hospital Course and Treatment Operations: None Procedures: None Summary of Care Provided: Patient seen and examined independently. Data reviewed. I agree with the above note by the nurse practitioner. The patient is a 78 year old M presents with confusion. Patient did not state that he was unresponsive anyway but just felt off and was brought to the hospital for evaluation. Patient's mental status improved. Patient underwent an MRI and additional workup that was unremarkable. Patient has been his normal state of health. I did inquire if the patient had any kind of exposure to carbon monoxide such as in a car on a closed facility he denied that, however, patient's carboxyhemoglobin level was 2.5 after being in the hospital since yesterday so concerning if the patient is getting some exposure with his vehicle . Patient endorses that he did have an issue with some exhaust issue years prior with the same vehicle. They may need to be further evaluated to see if that may be a potential culprit. Unclear if this is a definitive reason for his unresponsiveness but no other reason to be identified. [] - Physical Exam General: Alert, No apparent distress HEENT: Atraumatic, Normocephalic Oral: Moist Mucosa, No Gingival or Mucosal Lesions/ Ulcerations Neck: No Nodes, Trachea Midline Lungs: Clear to auscultation, Normal air movement, No rhonchi, No wheeze Cardiovascular: Regular rate, Regular Rhythm, Normal S1, Normal S2, No murmurs Abdomen: Bowel Sounds Present, Soft, Non Tender, Non-Distended, No Hepato- splenomegaly Extremities: No edema, No Calf Tenderness Skin: No rashes, No breakdown Musculoskeletal: No Tenderness to Palpation of Joints or Extremities, No Muscle Wasting Neurological: Cranial nerves II-XII grossly intact, Neuro grossly intact, Motor Exam 5/5 strength throughout Psych/Mental Status: Normal Affect, Appropriate Vital Signs Temp Pulse Resp BP Pulse Ox 36.6 C 81 16 121/69 H 96 01/20/19 12:00 01/20/19 12:00 01/20/19 12:00 01/20/19 12:00 01/20/19 12:00 Oxygen Delivery Method Room Air Weight: 76.4 kg Body Mass Index (BMI) 25.6 Finger Stick Blood Glucose 163 Intake and Output for Last 24 Hours 01/18/19 01/19/19 01/20/19 23:59 23:59 23:59 Intake Total 1008 / 1008 1660 / 1660 Output Total 450 / 450 1425 / 1425 Balance 558 / 558 235 / 235 Laboratory Tests Past 24 Hrs 01/19/19 01/19/19 01/19/19 14:30 14:30 15:00 WBC RBC Hgb Hct MCV MCH MCHC RDW RDW Differential Plt Count MPV Immature Gran % (Auto) Neut % (Auto) Lymph % (Auto) [place] % (Auto) Eos % (Auto) Baso % (Auto) Absolute Neuts (auto) Absolute Lymphs (auto) Total Counted VBG Carboxyhemoglobin Sodium Potassium Chloride Carbon Dioxide Anion Gap BUN Creatinine Estim Creat Clear Calc Est GFR (MDRD) Af Amer Est GFR (MDRD) Non-Af BUN/Creatinine Ratio Glucose Hemoglobin A1c 6.7 H Calcium Total Bilirubin 0.60 Direct Bilirubin 0.20 AST 28 ALT 48 Alkaline Phosphatase 81 Ammonia Total Protein 8.4 H Albumin 4.7 Globulin 3.7 Vitamin B12 TSH Urine Color Yellow Urine Clarity Sl Cloudy Urine pH 6.0 Ur Specific [place] 1.015 Urine Protein 15 H Urine Glucose (UA) Normal Urine Ketones 50 H Urine Occult Blood 25 H Urine Nitrite Negative Urine Bilirubin Negative Urine Urobilinogen Normal Ur Leukocyte Esterase 25 H Urine RBC 0-5 SEEN Urine WBC 0-5 SEEN Ur Squamous Epith Cells 0 SEEN Urine Bacteria RARE Urine Mucus 0 SEEN 01/19/19 01/20/19 01/20/19 15:23 05:15 05:15 WBC 7.2 RBC 4.43 L Hgb 14.3 Hct 42.4 MCV 95.7 H MCH 32.3 H MCHC 33.7 RDW 13.4 RDW Differential 45.0 H Plt Count 199 MPV 10.5 Immature Gran % (Auto) 0.000 Neut % (Auto) 56.1 Lymph % (Auto) 23.4 [place] % (Auto) 13.6 H Eos % (Auto) 6.3 H Baso % (Auto) 0.6 Absolute Neuts (auto) 4.0 Absolute Lymphs (auto) 1.68 Total Counted Not Reportable VBG Carboxyhemoglobin Sodium 144 Potassium 3.7 Chloride 110 H Carbon Dioxide 27.0 Anion Gap 7 BUN 8 Creatinine 0.74 Estim Creat Clear Calc 58.90 Est GFR (MDRD) Af Amer 131 Est GFR (MDRD) Non-Af 108 BUN/Creatinine Ratio 10.8 Glucose 122 H Hemoglobin A1c Calcium 8.2 L Total Bilirubin Direct Bilirubin AST ALT Alkaline Phosphatase Ammonia 11.0 Total Protein Albumin Globulin Vitamin B12 TSH 3.16 Urine Color Urine Clarity Urine pH Ur Specific [place] Urine Protein Urine Glucose (UA) Urine Ketones Urine Occult Blood Urine Nitrite Urine Bilirubin Urine Urobilinogen Ur Leukocyte Esterase Urine RBC Urine WBC Ur Squamous Epith Cells Urine Bacteria Urine Mucus 01/20/19 01/20/19 05:15 12:55 WBC RBC Hgb Hct MCV MCH MCHC RDW RDW Differential Plt Count MPV Immature Gran % (Auto) Neut % (Auto) Lymph % (Auto) [place] % (Auto) Eos % (Auto) Baso % (Auto) Absolute Neuts (auto) Absolute Lymphs (auto) Total Counted VBG Carboxyhemoglobin 2.5 H Sodium Potassium Chloride Carbon Dioxide Anion Gap BUN Creatinine Estim Creat Clear Calc Est GFR (MDRD) Af Amer Est GFR (MDRD) Non-Af BUN/Creatinine Ratio Glucose Hemoglobin A1c Calcium Total Bilirubin Direct Bilirubin AST ALT Alkaline Phosphatase Ammonia Total Protein Albumin Globulin Vitamin B12 658 TSH Urine Color Urine Clarity Urine pH Ur Specific [place] Urine Protein Urine Glucose (UA) Urine Ketones Urine Occult Blood Urine Nitrite Urine Bilirubin Urine Urobilinogen Ur Leukocyte Esterase Urine RBC Urine WBC Ur Squamous Epith Cells Urine Bacteria Urine Mucus POC Glucose 01/20/19 01/20/19 01/19/19 11:18 06:42 22:18 POC Glucose 161 H 126 H 104 01/19/19 16:30 POC Glucose 150 H Discharge Diet: No Restrictions Discharge Activity: Return to Normal Activity Call your doctor if you observe: Numbness or Tingling, - Disposition: Home Minutes spent on discharge:: 35 Patient Condition:: Stable Medical Necessity - Tobacco Use Smoking Status: Never smoker Tobacco Use: Non-smoker Meaningful Use Info Meaningful Use Diagnoses (Choose all that apply): None applicable Code Visit OBSV E&M: 32220 Observation care discharge
== END 2019-01-20 11:47 | disposition home or self-care (01) ==
LOC: ED 15:21 → PCU 15:49
PROVIDERS: Nurse Practitioner Family; Admitting Provider Family Medicine; Emergency Provider Emergency Medicine
DX: R41.82 Altered mental status, unspecified (principal); I10 Essential (primary) hypertension; E11.9 Type 2 diabetes mellitus without complications; E78.5 Hyperlipidemia, unspecified; K21.9 Gastro-esophageal reflux disease without esophagitis; N40.0 Benign prostatic hyperplasia without lower urinary tract symptoms; Z79.82 Long term (current) use of aspirin; Z79.899 Other long term (current) drug therapy; Z87.891 Personal history of nicotine dependence; Z79.84 Long term (current) use of oral hypoglycemic drugs
CPT/HCPCS: 36415; 70450; 70551; 71045; 80048; 80076; 81001; 82140; 82375; 82607; 82962; 83036; 84443; 85025; 93005; 96360; 96361; 96372; 99218; 99283; J7030; A4216; G0378